=== PATIENT | male | born 1965 ===

== ENCOUNTER 2017-01-09 11:36 | Emergency (ER) | payer SELFPAY ==
[2017-01-09] MEDS ORDERED: Sodium Chloride 0.9% 1,000 ML IV ONE (11:48)
[2017-01-09 11:55] VITALS: O2SAT 95
[2017-01-09] MEDS ORDERED: Sodium Chloride 0.9% 1,000 ML ONE (12:07)
[2017-01-09 12:15] LABS: BASO # 0.1 K/uL (0.0-0.2); BASO % 0.7 % (0.0-2.0); EOS # 0.1 K/uL (0.0-0.7); EOS % 0.7 % (0.0-4.0); HEMATOCRIT 42.7 % (35.0-51.0); LYMPH # 2.3 K/uL (1.0-4.3); LYMPH % 24.7 % (20.0-40.0); MEAN CELL VOLUME 95.9 fL (80.0-94.0); MEAN CORPUSCULAR HEMOGLOBIN 31.7 pg (27.0-31.0); MEAN CORPUSCULAR HGB CONC 33.1 g/dL (33.0-37.0); MEAN PLATELET VOLUME 9.1 fL (7.2-11.7); MONO # 0.6 K/uL (0.0-0.8); MONO % 6.2 % (0.0-10.0); RED CELL DISTRIBUTION WIDTH 13.5 % (11.5-14.5); WHITE BLOOD COUNT 9.5 K/uL (4.8-10.8)
[2017-01-09 12:37] LABS: RBC URINE < 1 /hpf (0-3); URINE BILIRUBIN NEGATIVE (NEGATIVE); URINE BLOOD NEGATIVE (NEGATIVE); URINE COLOR Yellow (YELLOW); URINE GLUCOSE (UA) NORMAL (Normal); URINE KETONE NEGATIVE (NEGATIVE); URINE LEUKOCYTE ESTERASE NEG Leu/uL (Negative); URINE PROTEIN 1+ mg/dL (NEGATIVE); URINE UROBILINOGEN NORMAL mg/dL (0.2-1.0); WBC URINE 9 /hpf (0-5)
[2017-01-09 12:39] LABS: CHLORIDE 102 mmol/L (98-107); POTASSIUM 3.1 mmol/L (3.6-5.2); SODIUM 137 mmol/L (132-148)
[2017-01-09 12:41] LABS: CARBON DIOXIDE 18 mmol/L (22-30); GFR AFRICAN-AMERICAN > 60
[2017-01-09 12:42] LABS: ALB/GLOB RATIO 1.5 (1.0-2.1); ALKALINE PHOSPHATASE 62 U/L (38-126); ALT/SGPT 39 U/L (21-72); AST/SGOT 22 U/L (17-59); BILIRUBIN,TOTAL < 0.1 mg/dL (0.2-1.3); BLOOD UREA NITROGEN 11 mg/dL (9-20); CALCIUM 7.2 mg/dl (8.6-10.4); GLUCOSE,RANDOM 98 mg/dL (75-110); TOTAL PROTEIN 6.4 g/dL (6.3-8.3)
[2017-01-09 12:43] LABS: ALCOHOL SERUM 95 mg/dl (0-10)
--- NOTE | 2017-01-09 12:43 | RAD ---
PROCEDURE: CHEST RADIOGRAPH, 1 VIEW portable study semi erect technique 11:55. HISTORY: SOB COMPARISON: None available. FINDINGS: LUNGS: Clear. PLEURA: No pneumothorax or pleural fluid seen. CARDIOVASCULAR: No radiographic findings to suggest acute or significant cardiovascular disease. OSSEOUS STRUCTURES: No significant abnormalities. VISUALIZED UPPER ABDOMEN: Normal. OTHER FINDINGS: None. IMPRESSION: No active disease.
[2017-01-09] MEDS ORDERED: Potassium Chloride 20 mEq ER Tab PO STA (13:09)
--- NOTE | 2017-01-09 13:11 | C.PDOC ---
History Of Present Illness 51-year-old male BIBA for evaluation, was found in street & appeared to be under the influence of opiates. EMS gave intranasal in the Narcan with good response. Patient arrives to ED awake & alert, admits to drinking alcohol and "may have snortted heroin" earlier today. Patient requesting detox from alcohol. He denies nausea/vomiting, SI/HI, chest pain, shortness of breath. Time Seen by Provider: 01/09/17 11:41 Chief Complaint (Nursing): Psychiatric Evaluation History Per: Patient, EMS History/Exam Limitations: no limitations Current Symptoms Are (Timing): Still Present Modifying Factor(s): Alcohol, Narcotics Severity: Moderate Associated Symptoms: denies: Suicidal Thoughts, Suicidal Plan Involuntary Hold By: Emergency Physician Past Medical History Reviewed: Historical Data, Nursing Documentation, Vital Signs Vital Signs: Last Vital Signs Temp 98.0 F 01/09/17 15:26 Pulse 92 H 01/09/17 17:23 Resp 17 01/09/17 17:23 BP 143/99 H 01/09/17 17:23 Pulse Ox 95 01/09/17 17:23 - Medical History PMH: No Chronic Diseases Family History: States: No Known Family Hx - Social History Hx Alcohol Use: Yes Hx Substance Use: Yes - Immunization History Hx Tetanus Toxoid Vaccination: No Hx Influenza Vaccination: No Hx Pneumococcal Vaccination: No Review Of Systems Except As Marked, All Systems Reviewed And Found Negative. Constitutional: Negative for: Fever, Chills Cardiovascular: Negative for: Chest Pain, Palpitations Respiratory: Negative for: Cough, Shortness of Breath Gastrointestinal: Negative for: Nausea, Vomiting Skin: Negative for: Rash Neurological: Negative for: Weakness, Numbness Psych: Positive for: Other (alcohol, heroin abuse). Negative for: Depression, Suicidal ideation Physical Exam - Physical Exam Appears: Non-toxic, No Acute Distress, Unkempt Skin: Warm, Dry, No Rash Head: Atraumatic, Normacephalic Eye(s): bilateral: Normal Inspection, Other (3-4mm and reactive ) Nose: Normal, No Deformity, No Tenderness Oral Mucosa: Moist Neck: Normal, Normal ROM, No Midline Cervical Tenderness, No Paracervical Tenderness, No Step Off Deformity, Supple Cardiovascular: Rhythm Regular (mildly tachycardic ) Respiratory: Normal Breath Sounds, No Rales, No Rhonchi, No Wheezing Gastrointestinal/Abdominal: Normal Exam, Bowel Sounds, Soft, No Tenderness Extremity: Normal ROM, No Deformity Extremity: Bilateral: Atraumatic Neurological/Psych: Oriented x3 ED Course And Treatment - Laboratory Results Result Diagrams: 01/09/17 12:10 01/09/17 12:10 O2 Sat by Pulse Oximetry: 95 (RA) Pulse Ox Interpretation: Normal Progress Note: Blood work, UA, UDS ordered and reviewed. 1:15pm- Patient medically cleared. Pending crisis. 1:40PM- Patient seen by crisis counselor Jeff, and now is refusing detox admission. He is AAOx3, ambulating normally in the ED, and clinically sober. Will discharge. Reevaluation Time: 13:40 Reassessment Condition: Improved Disposition Counseled Patient/Family Regarding: Studies Performed, Diagnosis, Need For Followup - Disposition Referrals: [facility] [Outside] Disposition: HOME/ ROUTINE Disposition Time: 13:45 Condition: STABLE Instructions: Narcotic Abuse (ED) Print Language: MALTESE - POA Present On Arrival: None - Clinical Impression Clinical Impression: Heroin abuse, Alcohol abuse - Scribe Statement The provider has reviewed the documentation as recorded by the Scribaylin Marti All medical record entries made by the Scribe were at my direction and personally dictated by me. I have reviewed the chart and agree that the record accurately reflects my personal performance of the history, physical exam, medical decision making, and the department course for this patient. I have also personally directed, reviewed, and agree with the discharge instructions and disposition.
[2017-01-09] MEDS ORDERED: Potassium Chloride 20 mEq ER Tab PO ONE (13:39)
[2017-01-09 15:27] VITALS: RESP 17; TEMP 98
[2017-01-09 17:24] VITALS: BP 143/99; PULSE 92
== END 2017-01-09 17:44 | disposition home or self-care (01) ==
LOC: C.ER 11:36
DX: F10.10 Alcohol abuse, uncomplicated (principal); F11.10 Opioid abuse, uncomplicated; Y90.4 Blood alcohol level of 80-99 mg/100 ml
CPT/HCPCS: 71010; 80053; 81001; 82948; 85025; 96360; 99284; G0480; J7040

== ENCOUNTER 2017-01-21 11:01 | Observation (INO) | payer BC ==
--- NOTE | 2017-01-21 11:35 | C.PDOC ---
History Of Present Illness 51-year-old male, is brought to the emergency department via EMS with complaints of public intoxication. Patient admits to drinking alcohol and using hEROIN. Patient denies any other drug use. No SI/HI. Time Seen by Provider: 01/21/17 11:07 History Per: Patient History/Exam Limitations: no limitations Past Medical History Reviewed: Historical Data, Nursing Documentation, Vital Signs Vital Signs: Last Vital Signs Temp 97.9 F 01/21/17 11:15 Pulse 84 01/21/17 16:17 Resp 20 01/21/17 16:17 BP 110/77 01/21/17 13:00 Pulse Ox 96 01/21/17 16:17 - Medical History PMH: Denies: Diabetes, Hepatitis, HIV, HTN, Seizures, Sexually Transmitted Disease Family History: States: No Known Family Hx - Social History Hx Alcohol Use: Yes Hx Substance Use: Yes - Immunization History Hx Tetanus Toxoid Vaccination: No Hx Influenza Vaccination: No Hx Pneumococcal Vaccination: No Review Of Systems Constitutional: Negative for: Fever, Chills Cardiovascular: Negative for: Chest Pain Gastrointestinal: Negative for: Vomiting Psych: Negative for: Suicidal ideation Physical Exam - Physical Exam Appears: Non-toxic, No Acute Distress, Other (INTOXICATED, CALM AND COOPERATIVE. NO ACUTE SIGNS OR SX OF WITHDRAWAL) Skin: Warm, Dry, No Rash Head: Atraumatic Eye(s): bilateral: Normal Inspection Nose: Normal Neck: Normal ROM Respiratory: No Accessory Muscle Use Extremity: Normal ROM Medical Decision Making Medical Decision Makinpm pt now clinically sober and ambulatory with steady gait. ED OBSERVATION Discharge: Yes Date of observation admission: 01/21/17 Time of observation admission: 11:37 - Observation admission statement Patient is being placed in observation because:: intoxication Disposition - Disposition Disposition: HOME/ ROUTINE Disposition Time: 16:20 Condition: STABLE - Clinical Impression Clinical Impression: Heroin abuse - Scribe Statement The provider has reviewed the documentation as recorded by the Toni Marti All medical record entries made by the Scribe were at my direction and personally dictated by me. I have reviewed the chart and agree that the record accurately reflects my personal performance of the history, physical exam, medical decision making, and the department course for this patient. I have also personally directed, reviewed, and agree with the discharge instructions and disposition.
[2017-01-21 11:44] VITALS: TEMP 97.9
[2017-01-21 13:04] VITALS: BP 110/77
[2017-01-21 16:17] VITALS: PULSE 84; RESP 20; O2SAT 96
== END 2017-01-21 16:20 | disposition home or self-care (01) ==
LOC: C.ER 11:01 → C.9OBSV 11:54
PROVIDERS: ADMIT Emergency Medicine; ATTEND Emergency Medicine
DX: F11.10 Opioid abuse, uncomplicated (principal); F10.120 Alcohol abuse with intoxication, uncomplicated
CPT/HCPCS: 99284; G0378

== ENCOUNTER 2018-02-24 09:41 | Emergency (ER) | payer BC ==
--- NOTE | 2018-02-24 10:41 | C.PDOC ---
History Of Present Illness 52 y/o male brought to ED by BLS after being found on street in an acute ETOH intoxication. Patient was given Narcan on route and slightly woke up, stating he had drank ETOH. At ED patient has no physical complaints at this time. Time Seen by Provider: 02/24/18 09:53 Chief Complaint (Nursing): Substance Abuse History Per: Patient History/Exam Limitations: no limitations Onset/Duration Of Symptoms: Days Current Symptoms Are (Timing): Still Present Suicide/Self Injury Attempted (Context): None Modifying Factor(s): Alcohol Past Medical History Reviewed: Historical Data, Nursing Documentation, Vital Signs Vital Signs: Last Vital Signs Temp 98 F 02/24/18 13:50 Pulse 95 H 02/24/18 13:50 Resp 18 02/24/18 13:50 BP 124/73 02/24/18 13:50 Pulse Ox 96 02/24/18 13:50 - Medical History PMH: No Chronic Diseases Surgical History: No Surg Hx Family History: States: No Known Family Hx - Social History Hx Alcohol Use: Yes Hx Substance Use: Yes - Immunization History Hx Tetanus Toxoid Vaccination: No Hx Influenza Vaccination: No Hx Pneumococcal Vaccination: No Review Of Systems Constitutional: Negative for: Fever, Chills Gastrointestinal: Negative for: Nausea, Vomiting Psych: Positive for: Other (ETOH intoxication). Negative for: Depression, Suicidal ideation Physical Exam - Physical Exam Appears: Non-toxic, No Acute Distress Skin: Warm, Dry, No Rash Head: Atraumatic, Normacephalic Eye(s): bilateral: Normal Inspection Oral Mucosa: Moist Neck: Normal ROM, Supple Cardiovascular: Rhythm Regular Respiratory: Normal Breath Sounds, No Rales, No Rhonchi, No Wheezing Gastrointestinal/Abdominal: Soft, No Tenderness, No Guarding, No Rebound Neurological/Psych: Oriented x3, Normal Speech ED Course And Treatment O2 Sat by Pulse Oximetry: 97 (RA) Pulse Ox Interpretation: Normal Progress Note: Patient will be on observation pending Sobriety. On re- evaluation ambulating with steady gait, tolerating PO. In no distress Reassessment Condition: Improved Disposition Counseled Patient/Family Regarding: Diagnosis, Need For Followup - Disposition Referrals: [facility] [Outside] [facility] [Outside] Disposition: HOME/ ROUTINE Disposition Time: 13:40 Condition: STABLE Additional Instructions: up with clinic for further evaluation Instructions: Alcohol Abuse and Alcoholism (DC), Polysubstance Abuse Forms: [facility] (Mexican) - POA Present On Arrival: None - Clinical Impression Clinical Impression: Alcohol abuse - PA / DISABILITY COORDINATOR / Resident Statement MD/DO has reviewed & agrees with the documentation as recorded. - Scribe Statement The provider has reviewed the documentation as recorded by the Jessicaibaylin Smith All medical record entries made by the Jessicaibaylin were at my direction and personally dictated by me. I have reviewed the chart and agree that the record accurately reflects my personal performance of the history, physical exam, medical decision making, and the department course for this patient. I have also personally directed, reviewed, and agree with the discharge instructions and disposition.
[2018-02-24 13:51] VITALS: BP 124/73; PULSE 95; RESP 18; TEMP 98
[2018-02-24 17:56] VITALS: O2SAT 97
== END 2018-02-24 13:51 | disposition home or self-care (01) ==
LOC: C.ER 09:41
DX: F10.10 Alcohol abuse, uncomplicated (principal)

== ENCOUNTER 2018-11-26 21:42 | Emergency (ER) | payer SELFPAY ==
[2018-11-26 21:59] VITALS: BP 145/98; PULSE 62; RESP 18; TEMP 98; O2SAT 97
--- NOTE | 2018-11-26 22:32 | C.PDOC ---
History Of Present Illness 53 y/o male pt presents to the ER by EMS for public intoxication. Pt is a well known pt in the ER. Pt has no associated sx or complaints at this time. Time Seen by Provider: 11/26/18 22:14 Chief Complaint (Nursing): Substance Abuse History Per: Patient History/Exam Limitations: no limitations Onset/Duration Of Symptoms: Hrs Current Symptoms Are (Timing): Still Present Modifying Factor(s): Alcohol Past Medical History Reviewed: Historical Data, Nursing Documentation, Vital Signs Vital Signs: Last Vital Signs Temp 98.0 F 11/26/18 21:56 Pulse 62 11/26/18 21:56 Resp 18 11/26/18 21:56 BP 145/98 H 11/26/18 21:56 Pulse Ox 97 11/26/18 21:56 Family History: States: Unknown Family Hx - Social History Hx Alcohol Use: Yes Hx Substance Use: Yes - Immunization History Hx Tetanus Toxoid Vaccination: No Hx Influenza Vaccination: No Hx Pneumococcal Vaccination: No Review Of Systems Except As Marked, All Systems Reviewed And Found Negative. Constitutional: Positive for: Other (alcohol intoxication ) Physical Exam - Physical Exam Appears: Well, Non-toxic, No Acute Distress Skin: Normal Color, Warm, Dry Head: Atraumatic, Normacephalic Eye(s): bilateral: Normal Inspection, PERRL, EOMI Nose: Normal Oral Mucosa: Moist Chest: Symmetrical Cardiovascular: Rhythm Regular, No Murmur Respiratory: Normal Breath Sounds, No Rales, No Rhonchi, No Wheezing Extremity: Bilateral: Atraumatic, Normal Color And Temperature, Normal ROM Neurological/Psych: Oriented x3, Normal Speech ED Course And Treatment O2 Sat by Pulse Oximetry: 97 (RA) Pulse Ox Interpretation: Normal Medical Decision Making Medical Decision Making: Assessment: alcohol intoxication Plans: -- Glucose, POC Finger stick results: 96 Pt was noted to be walking with a steady gait. Disposition - Disposition Disposition: ELOPEMENT - ER ONLY Disposition Time: 23:45 Condition: STABLE Forms: [facility] (Urdu) - Clinical Impression Clinical Impression: Alcohol abuse - Scribe Statement The provider has reviewed the documentation as recorded by the Scribaylin North Do Provider Attestation: All medical record entries made by the Scribe were at my direction and personally dictated by me. I have reviewed the chart and agree that the record accurately reflects my personal performance of the history, physical exam, medical decision making, and the department course for this patient. I have also personally directed, reviewed, and agree with the discharge instructions and disposition.
== END 2018-11-26 22:44 | disposition left against medical advice (07) ==
LOC: C.ER 21:42
DX: F10.129 Alcohol abuse with intoxication, unspecified (principal); Y90.9 Presence of alcohol in blood, level not specified

== ENCOUNTER 2019-01-07 16:01 | Emergency (ER) | payer SELFPAY | END 2019-01-07 16:24 | disposition left against medical advice (07) | LOC: C.ER 16:01 | DX: Z02.89 Encounter for other administrative examinations (principal) ==